=== PATIENT | female | born 1935 | race Caucasian/White ===

== ENCOUNTER 2018-03-28 13:26 | Inpatient (IN) | payer BC ==
[2018-03-28] MEDS: SOD CHLORIDE 0.9% 1,000 ML IV (17:08)
[2018-03-28] MEDS: ONDANSETRON 4 MG INJ IV (17:08)
[2018-03-28 17:12] LABS: ABNORMAL IP MESSAGE 1; HEMATOCRIT 27.6 % (37.0-47.0); HEMOGLOBIN 8.2 g/dl (12.0-16.0); MEAN CORPUSCULAR HEMOGLOBIN 20.2 pg (29.0-33.0); MEAN CORPUSCULAR HGB CONC 29.7 g/dl (32.0-37.0); MEAN PLATELET VOLUME 9.3 fl (7.4-10.4); NUCLEATED RED BLOOD CELLS% 0.1 /100WBC (0.0-0.0); PLATELET COUNT 614 10^3/UL (140-415); RED BLOOD COUNT 4.06 10^6/ul (4.20-5.40); RED CELL DISTRIBUTION WIDTH 16.1 % (11.5-14.5)
[2018-03-28] MEDS ORDERED: morphine 4 MG/ML VIAL (17:17)
[2018-03-28] MEDS: morphine 4 MG/ML VIAL IV (17:19)
[2018-03-28 17:20] LABS: POSITIVE DIFF @See below
[2018-03-28 17:21] LABS: ADD MAN DIFF? YES
[2018-03-28 17:22] LABS: PATH REVIEW Y
[2018-03-28 17:36] LABS: ALANINE AMINOTRANSFERASE 14 IU/L (13-69); ALBUMIN 4.2 g/dl (3.3-4.9); ALBUMIN/GLOBULIN RATIO 1.27; ALKALINE PHOSPHATASE 115 IU/L (42-121); ANION GAP 18 (5-13); ASPARTATE AMINO TRANSFERASE 36 IU/L (15-46); BILIRUBIN,INDIRECT 0.3 mg/dl (0-1.1); BILIRUBIN,TOTAL 0.3 mg/dl (0.2-1.3); BLOOD UREA NITROGEN 35 mg/dl (7-20); CALCIUM 10.6 mg/dl (8.4-10.2); CARBON DIOXIDE 23 mmol/L (21-31); CHLORIDE 99 mmol/L (97-110); CREATININE 1.29 mg/dl (0.44-1.00); GLUCOSE 266 mg/dl (70-220); LIPASE 47 U/L (23-300); POTASSIUM 4.1 mmol/L (3.5-5.1); SODIUM 140 mmol/L (135-144); TOTAL PROTEIN 7.5 g/dl (6.1-8.1)
[2018-03-28 17:43] LABS: TROPONIN-I 0.041 ng/ml (0.000-0.120)
[2018-03-28] MEDS: SODIUM CHLORIDE 0.9% 1L BAG IV* (17:45)
[2018-03-28 18:10] LABS: ANISOCYTOSIS 1+ (0-0); BAND NEUTROPHILS #M 1.8 10^3/ul (0.0-0.6); BAND NEUTROPHILS % (M) 5 % (0-4); BASOPHIL #M 0.3 10^3/ul (0.0-0.0); BASOPHILS % (M) 1 % (0-2); BURR CELLS 1+ (0-0); GIANT THROMBO% (M) 1 % (0-0); LYMPHOCYTES #M 0.3 10^3/ul (0.8-2.9); LYMPHOCYTES % (M) 1 % (15-51); MICROCYTOSIS 1+ (0-0); MONOCYTE #M 0.3 10^3/ul (0.3-0.9); MONOCYTES % (M) 1 % (0-11); OVALOCYTES 1+ (0-0); PLATELET ESTIMATE NORMAL; POIKILOCYTOSIS 1+ (0-0); POLYCHROMASIA 1+ (0-0); SEG NEUT #M 34.7 10^3/ul (1.6-7.5); SEGMENTED NEUTROPHILS (M) % 92 % (39-77); SMUDGE%M 1 % (0-0)
[2018-03-28] MEDS: CEFEPIME 2GM/50 ML (PMX) 50 ML IVPB (18:13)
[2018-03-28 18:26] LABS: INR 0.98; PROTIME 13.1 Sec (11.9-14.9)
[2018-03-28 19:23] LABS: PARTIAL THROMBOPLASTIN TIME 23.5 Sec (23.0-35.0)
[2018-03-28] MEDS ORDERED: ONDANSETRON 4 MG INJ IV (19:30)
[2018-03-28] MEDS ORDERED: ACETAMINOPHEN 325 MG TAB PO (19:30)
[2018-03-28 20:51] LABS: ADD UMIC NO; UR ASCORBIC ACID NEGATIVE (NEGATIVE); UR BILIRUBIN (Dip) NEGATIVE (NEGATIVE); UR BLOOD (Dip) NEGATIVE (NEGATIVE); UR CLARITY CLEAR (CLEAR); UR COLOR YELLOW (YELLOW); UR GLUCOSE (Dip) NEGATIVE (NEGATIVE); UR KETONES (Dip) NEGATIVE (NEGATIVE); UR LEUKOCYTE ESTERASE (Dip) NEGATIVE Leu/ul (NEGATIVE); UR NITRITE (Dip) NEGATIVE (NEGATIVE); UR SPECIFIC GRAVITY (Dip) 1.015 (1.003-1.030); UR TOTAL PROTEIN (Dip) NEGATIVE (NEGATIVE); UR UROBILINOGEN (Dip) NEGATIVE (NEGATIVE)
[2018-03-28] MEDS: D5W-0.45 NACL + KCL 20 MEQ 1,000 ML IV (22:08)
[2018-03-28 22:36] LABS: LACTIC ACID 1.9 mmol/L (0.5-2.0)
[2018-03-29] MEDS ORDERED: ACETAMINOPHEN 325 MG TAB PO
[2018-03-29] MEDS ORDERED: ONDANSETRON 4 MG INJ IV
[2018-03-29] MEDS: morphine 4 MG/ML VIAL IV ×5 (00:03→20:57)
[2018-03-29] MEDS: SOD CHLORIDE 0.9% 1,000 ML IV ×3 (01:28→21:00)
[2018-03-29] MEDS: CEFTRIAXONE 1 GM/50 ML (PMX) 50 ML IVPB (01:31)
[2018-03-29] MEDS: PANTOPRAZOLE (EC) 40 MG TAB PO ×2 (05:08→17:50)
[2018-03-29] MEDS: metroNIDAZOLE 500 MG/NS (PMX) 100 ML IVPB ×2 (05:08→15:30)
[2018-03-29 06:36] LABS: ABNORMAL IP MESSAGE 1; HEMATOCRIT 21.6 % (37.0-47.0); MEAN CORPUSCULAR HEMOGLOBIN 19.7 pg (29.0-33.0); MEAN CORPUSCULAR HGB CONC 29.2 g/dl (32.0-37.0); MEAN CORPUSCULAR VOLUME 67.7 fl (82.0-101.0); MEAN PLATELET VOLUME 9.9 fl (7.4-10.4); PLATELET COUNT 490 10^3/UL (140-415); RED BLOOD COUNT 3.19 10^6/ul (4.20-5.40); RED CELL DISTRIBUTION WIDTH 16.3 % (11.5-14.5); RETICULOCYTE COUNT # 0.049 X10^6 (0.020-0.110); RETICULOCYTE COUNT % 1.6 % (0.5-1.5)
[2018-03-29 06:36] LABS: RETICULOCYTE RBC 3.11; WHITE BLOOD COUNT 22.2 10^3/ul (4.8-10.8)
[2018-03-29 06:47] LABS: POSITIVE DIFF @See below
[2018-03-29 06:51] LABS: HEMOGLOBIN 6.3 g/dl (12.0-16.0)
[2018-03-29 06:52] LABS: ADD MAN DIFF? YES
[2018-03-29 07:02] LABS: IRON 12 ug/dl (35-150)
[2018-03-29 07:08] LABS: ALANINE AMINOTRANSFERASE 21 IU/L (13-69); ALBUMIN 3.2 g/dl (3.3-4.9); ALBUMIN/GLOBULIN RATIO 1.06; ALKALINE PHOSPHATASE 77 IU/L (42-121); ANION GAP 13 (5-13); ASPARTATE AMINO TRANSFERASE 22 IU/L (15-46); BILIRUBIN,INDIRECT 0.1 mg/dl (0-1.1); BILIRUBIN,TOTAL 0.1 mg/dl (0.2-1.3); BLOOD UREA NITROGEN 27 mg/dl (7-20); CALCIUM 9.1 mg/dl (8.4-10.2); CARBON DIOXIDE 23 mmol/L (21-31); CHLORIDE 107 mmol/L (97-110); CREATININE 0.96 mg/dl (0.44-1.00); GLUCOSE 139 mg/dl (70-220); POTASSIUM 3.9 mmol/L (3.5-5.1); SODIUM 143 mmol/L (135-144); TOTAL PROTEIN 6.2 g/dl (6.1-8.1)
[2018-03-29 07:12] LABS: % IRON SATURATION 3 % SAT (22-52); TOTAL IRON BINDING CAPACITY 375 ug/dl (241-421)
[2018-03-29 08:08] LABS: FOLATE 10.6 ng/ml (2.8-20.0)
[2018-03-29] MEDS: FLUTICASONE/VILANTEROL 100-25 INH (09:00)
[2018-03-29] MEDS: VERAPAMIL (SR) 240 MG TAB PO (09:00)
[2018-03-29] MEDS: LACTOBACILLUS RHAMNOSUS CAP PO ×2 (09:00→20:49)
[2018-03-29 09:09] LABS: ANISOCYTOSIS 2+ (0-0); BAND NEUTROPHILS #M 0.6 10^3/ul (0.0-0.6); BAND NEUTROPHILS % (M) 3 % (0-4); BASOPHIL #M 0.2 10^3/ul (0.0-0.0); BASOPHILS % (M) 1 % (0-2); HYPOCHROMASIA 3+ (0-0); LYMPHOCYTES #M 0.8 10^3/ul (0.8-2.9); LYMPHOCYTES % (M) 4 % (15-51); MICROCYTOSIS 2+ (0-0); MONOCYTE #M 0.2 10^3/ul (0.3-0.9); MONOCYTES % (M) 1 % (0-11); OVALOCYTES 2+ (0-0); PLATELET ESTIMATE INCREASED; POIKILOCYTOSIS 1+ (0-0); POLYCHROMASIA 3+ (0-0); SEG NEUT #M 20.3 10^3/ul (1.6-7.5); SEGMENTED NEUTROPHILS (M) % 91 % (39-77); SMUDGE%M 2 % (0-0)
[2018-03-29] MEDS: ATORVASTATIN 40 MG TAB PO (20:49)
[2018-03-29 21:20] LABS: IMMEDIATE SPIN CROSSMATCH 1 3
[2018-03-30] MEDS: metroNIDAZOLE 500 MG/NS (PMX) 100 ML IVPB ×2 (00:57→05:53)
[2018-03-30] MEDS: ZOLPIDEM 5 MG TAB PO (00:57)
[2018-03-30] MEDS: morphine 4 MG/ML VIAL IV ×4 (00:58→12:05)
[2018-03-30] MEDS: SOD CHLORIDE 0.9% 1,000 ML IV (01:04)
[2018-03-30] MEDS: CEFTRIAXONE 1 GM/50 ML (PMX) 50 ML IVPB (02:02)
[2018-03-30 05:27] LABS: ADD MAN DIFF? NO
[2018-03-30 05:38] LABS: BASOPHIL # 0.1 10^3/ul (0.0-0.1); BASOPHILS % 0.5 % (0.0-2.0); EOSINOPHILS # 0.1 10^3/ul (0.0-0.5); EOSINOPHILS % 0.4 % (0.0-7.0); HEMATOCRIT 31.1 % (37.0-47.0); HEMOGLOBIN 9.7 g/dl (12.0-16.0); LYMPHOCYTES # 2.1 10^3/ul (0.8-2.9); LYMPHOCYTES % 12.5 % (15.0-51.0); MEAN CORPUSCULAR HGB CONC 31.2 g/dl (32.0-37.0); MEAN CORPUSCULAR VOLUME 73.9 fl (82.0-101.0); MEAN PLATELET VOLUME 9.9 fl (7.4-10.4); MONOCYTE # 0.8 10^3/ul (0.3-0.9); MONOCYTES % 4.5 % (0.0-11.0); NEUTROPHIL # 13.6 10^3/ul (1.6-7.5); NEUTROPHILS % 81.3 % (39.0-77.0); PLATELET COUNT 409 10^3/UL (140-415); RED BLOOD COUNT 4.21 10^6/ul (4.20-5.40); RED CELL DISTRIBUTION WIDTH 19.4 % (11.5-14.5)
[2018-03-30 05:38] LABS: WHITE BLOOD COUNT 16.8 10^3/ul (4.8-10.8)
[2018-03-30] MEDS: PANTOPRAZOLE (EC) 40 MG TAB PO (05:53)
[2018-03-30] MEDS: LACTOBACILLUS RHAMNOSUS CAP PO (08:43)
[2018-03-30] MEDS: FLUTICASONE/VILANTEROL 100-25 INH (08:43)
[2018-03-30] MEDS: VERAPAMIL (SR) 240 MG TAB PO (08:43)
== END 2018-03-30 14:30 | disposition home health service (06) | DRG 392 ==
LOC: E/R 13:26 → PP2 19:18
PROC: 30233N1 Transfusion of Nonautologous Red Blood Cells into Peripheral Vein, Percutaneous Approach (ICD-10-PCS; principal; 2018-03-29)
DX: A09 Infectious gastroenteritis and colitis, unspecified (principal); D50.9 Iron deficiency anemia, unspecified; I10 Essential (primary) hypertension; D72.829 Elevated white blood cell count, unspecified; K83.8 Other specified diseases of biliary tract
CPT/HCPCS: 36415; 36430; 71045; 74176; 80053; 81003; 82607; 82746; 83540; 83605; 83690; 84484; 85025; 85045; 85610; 85730; 86850; 86900; 86901; 86920; 87040; 87086; 93005; 96374; 96375; 99291-25; G0378